=== PATIENT | female | born 1995 | race American Indian/Alaskan Native ===

== ENCOUNTER 2017-12-30 21:25 | Outpatient (CLI) | payer MEDICAID ==
[2017-12-30 21:47] VITALS: BP 116/68
[2017-12-30] MEDS ORDERED: TYLENOL PO ONE (22:55)
== END 2017-12-31 00:08 | disposition home or self-care (01) ==
LOC: TRG 21:25
PROVIDERS: ATTEND Obstetrics & Gynecology
DX: O47.02 False labor before 37 completed weeks of gestation, second trimester (principal); Z3A.23 23 weeks gestation of pregnancy
CPT/HCPCS: 59025

== ENCOUNTER 2018-04-25 14:48 | Outpatient (CLI) | payer MEDICAID ==
[2018-04-25 15:57] LABS: Hematocrit 38.9 % (30.3-42.9); Hemoglobin 13.1 gm/dl (10.1-14.3); Mean Corpuscular HGB Conc 34 % (30-34); Mean Corpuscular Hemoglobin 33 pg (28-32); Mean Corpuscular Volume 97 fl (79-97); Platelet Count 207 K/mm3 (140-440); Red Blood Count 4.01 M/mm3 (3.65-5.03); Red Cell Distribution Width 13.5 % (13.2-15.2)
[2018-04-25 15:59] LABS: Bacteria,Urine 1+ /HPF (Negative); Bilirubin,Urine NEG (Negative); Blood,Urine MOD (Negative); Color,Urine Yellow (Yellow); Mucus,Urine 2+ /HPF; Urobilinogen,Urine < 2.0 mg/dL (<2.0)
[2018-04-25 16:38] LABS: Alanine Aminotransferase 16 units/L (7-56); Uric Acid 4.5 mg/dL (3.5-7.6)
[2018-04-25 17:45] VITALS: BP 106/66
== END 2018-04-25 18:00 | disposition home or self-care (01) ==
LOC: TRG 14:48
PROVIDERS: ATTEND Obstetrics & Gynecology
DX: O47.1 False labor at or after 37 completed weeks of gestation (principal); Z3A.40 40 weeks gestation of pregnancy
CPT/HCPCS: 36415; 59025; 81001; 82565; 83615; 84450; 84460; 84550; 85027

== ENCOUNTER 2018-04-26 16:27 | Inpatient (IN) | payer MEDICAID ==
[2018-04-26] MEDS ORDERED: LACTATED RINGERS 1,000 ML IV ONE (17:24)
[2018-04-26] MEDS ORDERED: POLYCILLIN/NS 2 GM/100 ML 2 GM/100 ML BAG IV ONE (17:55)
[2018-04-26] MEDS ORDERED: MINERAL OIL PO PRN (17:55)
[2018-04-26] MEDS ORDERED: BRETHINE IVP PRN (17:55)
[2018-04-26] MEDS ORDERED: XYLOCAINE 2% INFILTRATI ONE (17:55)
[2018-04-26] MEDS ORDERED: SUBLIMAZE IV PRN (17:55)
[2018-04-26] MEDS ORDERED: STADOL IV PRN (18:00)
[2018-04-26] MEDS ORDERED: LACTATED RINGERS 1,000 ML IV SCH (18:00)
[2018-04-26] MEDS ORDERED: PITOCin/NS 20 UNIT/1000ML DRIP 20 UNITS/1,000 ML BAG IV SCH (18:00)
--- NOTE | 2018-04-26 18:07 | History and Physical Report ---
History of Present Illness Date of examination: 04/26/18 Chief complaint: labor contractions History of present illness: EDC Calculations LMP: 04/25/2018 Past History : 2 Term Births: 0 Premature Births: 0 Living Children: 0 Para: 0 Mult. Births: 0 Prev : 0 Prev. attempt? 0 Aborta: 1 Elect. Ab: 1 Spont. Ab: 0 Ectopics: 0 # 1 Delivery date: 2012 Weeks Gestation: 8 Delivery type: EAB Past Medical History: Negative Past Medical History Past Surgical History: EAB 2012 Past Medical History Surgery (Non-cycle consultant): EAB 2012 Abnormal PAP: negative LALO Exposure: negative Infertility: negative Uterine Anomaly: negative Uterine Surgery (not C/S): negative Other Gynecologic Problems: negative Infection History Hx of STD: none HIV Risk Eval: no Hepatitis B Risk Eval: low risk Rash, Viral, or Febrile illness since last LMP? no Varicella/Chicken Pox Status: Immunized Genetic History Congenital Heart Defect: Mom: no Dad: no Nahomi Disease: Mom: no Dad: no Thalassemia Mom: no Dad: no Neural Tube Defect Mom: no Dad: no Down's Syndrome Mom: no Dad: no Bandar-Sachs Mom: no Dad: no Sickle Cell Disease/Trait Mom: no Dad: no Hemophilia Mom: no Dad: no Muscular Dystrophy Mom: no Dad: no Cystic Fibrosis Mom: no Dad: no [place] Chorea Mom: no Dad: no Mental Retardation Mom: no Dad: no Fragile X Mom: no Dad: no Other Genetic/Chromosomal Disorder Mom: no Dad: no Child w/other defect Mom: no Dad: no Enviromental Exposures Xray Exposure: no Medication, drug, or alcohol use since LMP: no Chemical/Other Exposure: no Exposure to Cat Liter: no Hx of Parvovirus (Fifth Disease): no Occupational Exposure to Children: none 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 Medications (reviewed today): None Current Allergies (reviewed today): No known allergies Past History Past Medical History: other (see HPI) Past Surgical History: other (see HPI) 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: other (see HPI) - Obstetrical History Expected Date of Delivery: 04/25/18 Actual Gestation: 40 Week(s) 1 Day(s) : 2 Para: 0 Hx # Term Pregnancies: 0 Number of Pregnancies: 0 Spontaneous Abortions: 0 Induced : 1 Number of Living Children: 0 Medications and Allergies Allergies Allergy/AdvReac Type Severity Reaction Status Date / Time No Known Allergies Allergy Verified 04/25/18 14:52 Home Medications Medication Instructions Recorded Confirmed Last Taken Type No Known Home Medications [No 04/25/18 04/25/18 Unknown History Reported Home Medications] Active Meds: Active Medications Ephedrine Sulfate (Ephedrine Sulfate) 10 mg IV Q2M PRN PRN Reason: Hypotension Fentanyl (Sublimaze) 100 mcg IV Q2H PRN PRN Reason: Labor Pain Lactated Ringer's (Lactated Ringers) 1,000 mls @ 150 mls/hr IV DIRECT BARRY Lactated Ringer's (Lactated Ringers) 1,000 mls @ 999 mls/hr IV BOLUS ONE Stop: 04/26/18 18:24 Ampicillin Sodium (Polycillin/Ns 2 Gm/100 Ml) 2 gm in 100 mls @ 100 mls/hr IV ONCE ONE; Protocol Stop: 04/26/18 18:54 Ampicillin Sodium (Ampicillin/Ns 1 Gm/50 Ml) 1 gm in 50 mls @ 100 mls/hr IV Q4HR BARRY; Protocol Lactated Ringer's (Lactated Ringers) 1,000 mls @ 125 mls/hr IV DIRECT BARRY Oxytocin/Sodium Chloride (Pitocin/Ns 20 Unit/1000ml Drip) 20 units in 1,000 mls @ 125 mls/hr IV DIRECT BARRY Mineral Oil (Mineral Oil) 30 ml PO QHS PRN PRN Reason: Constipation Terbutaline Sulfate (Brethine) 0.25 mg IVP ONCE PRN PRN Reason: Hyperstimulation/Hypertonicity Review of Systems All systems: negative - Vital Signs Vital signs: Vital Signs Pulse BP 88 132/76 04/26/18 16:37 04/26/18 16:37 Temp Pulse Resp BP Pulse Ox 98.1 F 88 16 125/80 04/26/18 16:40 04/26/18 17:54 04/26/18 16:40 04/26/18 17:54 - Physical Exam Breasts: Positive: normal Cardiovascular: Regular rate Lungs: Positive: Clear to auscultation, Normal air movement Abdomen: Positive: normal appearance, soft Genitourinary (Female): Positive: normal external genitalia, normal perenium Vulva: both: normal Vagina: Positive: normal moisture Uterus: Positive: normal size, normal contour Anus/Rectum: Positive: normal perianal skin Extremities: Positive: normal Deep Tendon Reflex Grade: Normal +2 - Obstetrical FHR: category 1 Uterine Contraction Monitor Mode: External Cervical Dilatation: 4 Uterine Contraction Pattern: Regular Uterine Tone Measurement Phase: Contraction Uterine Contraction Intensity: Moderate Results Result Diagrams: 04/26/18 18:00 All other labs normal. Assessment and Plan Patient admitted for labor @ 40w1d, GBS +, SVE changed from 2cm to 3cm with BBOW in 1 hour, regular ctx. Plan for pain management, epidural PRN and abx q4h until delivery. Admission orders in EMR. - Patient Problems (1) 40 weeks gestation of Current Visit: Yes Status: Acute (2) GBS (group B Streptococcus carrier), +RV culture, currently Current Visit: Yes Status: Acute (3) Active labor at term Current Visit: Yes Status: Acute
[2018-04-26 18:24] LABS: Hematocrit 38.2 % (30.3-42.9); Hemoglobin 13.1 gm/dl (10.1-14.3); Mean Corpuscular HGB Conc 34 % (30-34); Mean Corpuscular Hemoglobin 33 pg (28-32); Mean Corpuscular Volume 96 fl (79-97); Platelet Count 215 K/mm3 (140-440); Red Blood Count 3.96 M/mm3 (3.65-5.03); Red Cell Distribution Width 13.6 % (13.2-15.2)
[2018-04-26] MEDS ORDERED: STADOL ONE (18:43)
[2018-04-26] MEDS: LACTATED RINGERS 1,000 ML IV SCH ×2 (19:37→22:24)
[2018-04-26] MEDS ORDERED: NARCAN 2 MG/2 ML IV PRN (20:19)
--- NOTE | 2018-04-26 20:54 | Progress Note ---
Assessment and Plan Patient comfortable s/p epidural - AROM forebag. anticipate . Dr. Lopez aware. - Patient Problems (1) 40 weeks gestation of Current Visit: Yes Status: Acute (2) GBS (group B Streptococcus carrier), +RV culture, currently Current Visit: Yes Status: Acute (3) Active labor at term Current Visit: Yes Status: Acute Subjective - Subjective Date of service: 04/26/18 Principal diagnosis: IUP @ 40+1, LABOR Interval history: EDC Calculations LMP: 04/25/2018 Past History : 2 Term Births: 0 Premature Births: 0 Living Children: 0 Para: 0 Mult. Births: 0 Prev : 0 Prev. attempt? 0 Aborta: 1 Elect. Ab: 1 Spont. 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 no Varicella/Chicken Pox Status: Immunized Genetic History Congenital Heart Defect: Mom: no Dad: no Nahomi Disease: Mom: no Dad: no Thalassemia Mom: no Dad: no Neural Tube Defect Mom: no Dad: no Down's Syndrome Mom: no Dad: no Bandar-Sachs Mom: no Dad: no Sickle Cell Disease/Trait Mom: no Dad: no Hemophilia Mom: no Dad: no Muscular Dystrophy Mom: no Dad: no Cystic Fibrosis Mom: no Dad: no [place] Chorea Mom: no Dad: no Mental Retardation Mom: no Dad: no Fragile X Mom: no Dad: no Other Genetic/Chromosomal Disorder Mom: no Dad: no Child w/other defect Mom: no Dad: no Enviromental Exposures Xray Exposure: no Medication, drug, or alcohol use since LMP: no Chemical/Other Exposure: no Exposure to Cat Liter: no Hx of Parvovirus (Fifth Disease): no Occupational Exposure to Children: none 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 Medications (reviewed today): None Current Allergies (reviewed today): No known allergies Patient reports: no new complaints (comfortable s/p epidural) Objective - Vital Signs Vital Signs: Vital Signs - 12hr 04/26/18 04/26/18 04/26/18 16:37 16:40 16:54 Temperature 98.1 F Pulse Rate 88 79 Respiratory 16 Rate Blood Pressure 132/76 118/66 Blood Pressure [Right] O2 Sat by Pulse Oximetry 04/26/18 04/26/18 04/26/18 17:07 17:23 17:39 Temperature Pulse Rate 85 81 75 Respiratory Rate Blood Pressure 126/72 135/74 128/86 Blood Pressure [Right] O2 Sat by Pulse Oximetry 04/26/18 04/26/18 04/26/18 17:54 18:08 18:22 Temperature Pulse Rate 88 93 H 86 Respiratory Rate Blood Pressure 125/80 133/80 141/90 Blood Pressure [Right] O2 Sat by Pulse Oximetry 04/26/18 04/26/18 04/26/18 18:41 19:49 19:51 Temperature Pulse Rate 88 88 90 Respiratory 16 Rate Blood Pressure 132/68 142/84 Blood Pressure 132/68 [Right] O2 Sat by Pulse Oximetry 04/26/18 04/26/18 04/26/18 20:36 20:38 20:39 Temperature Pulse Rate 81 83 99 H Respiratory Rate Blood Pressure 122/66 110/61 Blood Pressure [Right] O2 Sat by Pulse 97 Oximetry 04/26/18 04/26/18 04/26/18 20:41 20:42 20:44 Temperature Pulse Rate 90 83 89 Respiratory Rate Blood Pressure 127/82 124/76 Blood Pressure [Right] O2 Sat by Pulse 97 Oximetry 04/26/18 04/26/18 04/26/18 20:45 20:46 20:48 Temperature Pulse Rate 90 81 76 Respiratory Rate Blood Pressure 160/84 129/68 122/61 Blood Pressure [Right] O2 Sat by Pulse Oximetry 04/26/18 04/26/18 20:49 20:50 Temperature Pulse Rate 77 73 Respiratory Rate Blood Pressure 125/65 Blood Pressure [Right] O2 Sat by Pulse 97 Oximetry - Exam Breasts: normal Cardiovascular: Regular rate Lungs: Clear to auscultation, Normal air movement Abdomen: Present: normal appearance, soft Vulva: both: normal Uterus: Present: normal FHR: auscultation normal, category 1 Uterine Contraction Monitor Mode: External Cervical Dilatation: 6.5 (forebag AROM'd) Cervical Effacement Percentage: 100 station: 0 Uterine Contraction Frequency (min): 3-5 Uterine Contraction Duration: 60 Uterine Contraction Pattern: Regular Uterine Tone Measurement Phase: Contraction Uterine Contraction Intensity: Moderate Extremities: normal Deep Tendon Reflex Grade: Normal +2 - Labs Labs: Abnormal Labs 04/26/18 18:00 MCH 33 H Laboratory Results - last 24 hr 04/26/18 04/26/18 18:00 18:00 WBC 8.9 RBC 3.96 Hgb 13.1 Hct 38.2 MCV 96 MCH 33 H MCHC 34 RDW 13.6 Plt Count 215 Blood Type B NEGATIVE Antibody Screen Negative
[2018-04-26] MEDS ORDERED: fentaNYL-BUPIV 2 MCG/ML-0.125% 200 MCG/100 ML BAG EPIDURAL SCH (21:00)
[2018-04-26] MEDS ORDERED: PITOCin/NS 30 UNIT/500ML 30 UNITS/500 ML BAG IV SCH (21:00)
--- NOTE | 2018-04-26 21:29 | Anesthesia Consultation ---
Anesthesia Consult and Med Hx Date of service: 04/26/18 - Airway Anesthetic Teeth Evaluation: Good ROM Head & Neck: Adequate Mental/Hyoid Distance: Adequate Mallampati Class: Class II Intubation Access Assessment: Probably Good - Pulmonary Exam CTA: Yes - Cardiac Exam Cardiac Exam: RRR - Pre-Operative Health Status ASA Pre-Surgery Classification: ASA1 Proposed Anesthetic Plan: Epidural, Spinal - Pulmonary Hx Smoking: No Hx Asthma: No SOB: No - Cardiovascular System Hx Hypertension: No Hx Heart Attack/AMI: No - Central Nervous System Hx Neuromuscular Disorder: No Hx Seizures: No CVA: No - Endocrine Hx Renal Disease: No Hx Liver Disease: No Hx Thyroid Disease: No - Hematic Hx Anemia: No
[2018-04-26] MEDS ORDERED: AMPICILLIN/NS 1 GM/50 ML 1 GM/50 ML BAG IV SCH (21:57)
--- NOTE | 2018-04-27 01:32 | Procedure Note ---
OB Delivery Note - Delivery Date of Delivery: 04/27/18 ( female) Band Straightener: MATTHEW SHAH Estimated blood loss: 200cc - Vaginal Delivery presentation: vertex Delivery position: OA Intrapartum events: none Delivery induction: none Delivery augmentation: pitocin Delivery monitor: external FHT, external uterine Route of delivery: Delivery placenta: spontaneous Delivery cord: 3 umbilical vessels Episiotomy: none Delivery laceration: none Anesthesia: epidural Delivery comments: female delivered over intact perineum, placed skin to skin on mother's abdomen. 3 vessel cord clamped and cut. Placenta del intact and complete. no lacerations to repair. Pit to IVF. EBL 200, apgars 8/9, wt 6#10oz. mother and LDR stable. - Infant A at 1 minute: 8 at 5 minutes: 9 Infant Gender: Female (6#10)
[2018-04-27] MEDS ORDERED: ZOFRAN ONE (03:25)
[2018-04-27] MEDS ORDERED: LANSINOH TP PRN (04:08)
[2018-04-27] MEDS ORDERED: SODIUM CHLORIDE FLUSH SYRINGE 10 ML IV PRN (04:08)
[2018-04-27] MEDS ORDERED: TUCKS PAD TP PRN (04:08)
[2018-04-27] MEDS ORDERED: TYLENOL PO PRN (04:08)
[2018-04-27] MEDS ORDERED: ZOFRAN IV PRN (04:08)
[2018-04-27] MEDS ORDERED: DULCOLAX PR PRN (04:08)
[2018-04-27] MEDS ORDERED: BENADRYL PO PRN (04:08)
[2018-04-27] MEDS ORDERED: PHENERGAN PO PRN (04:08)
[2018-04-27] MEDS ORDERED: MILK OF MAGNESIA PO PRN (04:08)
[2018-04-27] MEDS ORDERED: PITOCin/NS 20 UNIT/1000ML DRIP 20 UNITS/1,000 ML BAG IV SCH (04:08)
[2018-04-27] MEDS: MOTRIN PO SCH ×4 (05:43→23:20)
[2018-04-27] MEDS ORDERED: PRENATAL VITAMIN PO SCH (10:00)
[2018-04-27 12:59] LABS: Hematocrit 34.9 % (30.3-42.9)
[2018-04-28] MEDS: MOTRIN PO SCH (05:14)
--- NOTE | 2018-04-28 05:59 | Discharge Summary ---
Providers - Providers Date of Admission: 04/26/18 18:41 Date of discharge: 04/28/18 (pt agrees with d/c) Attending physician: ROMEO MONTERO 04/27/18 04:08 Consult to Obgyn Hospitalist Physician [CONS] Routine Reason For Exam: assistance with , SNS Primary care physician: NISHANT STREET Hospitalization Reason for admission: active labor Delivery: Episiotomy: none Laceration: none Incision: normal, dry Other procedures: none complications: none Discharge diagnosis: IUP at term delivered baby: female Hospital course: uncomplicated vaginal delivery Pt resting Feeding NB VSS FF below umb Lochia small perineum intact H&H stable Doing well s/p vag delivery P: d/c today with instructions RTO 4 weeks PP care Condition at discharge: Good Disposition: DC-01 TO HOME OR SELFCARE - Discharge Diagnoses (1) (normal spontaneous vaginal delivery) Status: Acute Comment: RTO 4 weeks PP care Plan - Provider Discharge Summary Activity: routine, no sex for 6 weeks, no heavy lifting 4 weeks, no strenuous exercise Diet: routine Instructions: routine Additional instructions: [] Smoking cessation referral if applicable(refer to patient education folder for contact #) [] Refer to [facility] Booklet Call your doctor immediately for: * Fever > 100.5 * Heavy vaginal bleeding ( >1 pad per hour) * Severe persistent headache * Shortness of breath * Reddened, hot, painful area to leg or breast * Drainage or odor from incision. * Keep incision clean and dry at all times and follow doctor's instructions regarding bathing/showering - Follow up plan Follow up: NISHANT STREET MD [Primary Care Provider] - 05/27/18 (Congratulations! Please call [facility] office [phone] to schedule your visit in 4 weeks. Motrin/Ibuprofen for any cramping you may experience. Call with concerns.)
[2018-04-28] MEDS ORDERED: BOOSTRIX IM ONE (06:00)
[2018-04-28 12:45] VITALS: BP 118/76
== END 2018-04-28 12:35 | disposition home or self-care (01) | DRG 775 ==
LOC: TRG 16:27 → LD 18:41 → OB 04-27 03:59
PROVIDERS: ADMIT Obstetrics & Gynecology; ATTEND Obstetrics & Gynecology
PROC: 10E0XZZ Delivery of Products of Conception, External Approach (ICD-10-PCS; principal; 2018-04-27)
PROC: 3E0R3BZ Introduction of Anesthetic Agent into Spinal Canal, Percutaneous Approach (ICD-10-PCS; 2018-04-27)
PROC: 00HU33Z Insertion of Infusion Device into Spinal Canal, Percutaneous Approach (ICD-10-PCS; 2018-04-27)
PROC: 3E0234Z Introduction of Serum, Toxoid and Vaccine into Muscle, Percutaneous Approach (ICD-10-PCS; 2018-04-28)
DX: O99.824 Streptococcus B carrier state complicating childbirth (principal); Z3A.40 40 weeks gestation of pregnancy; Z37.0 Single live birth; Z29.13 Encounter for prophylactic Rho(D) immune globulin
CPT/HCPCS: 36415; 85014; 85018; 85027; 85461; 86592; 86850; 86900; 86901; 90471; 90715; J0290; J0595; J2405; J2590; J2790; J7120

== ENCOUNTER 2020-05-03 18:17 | Emergency (ER) | payer MEDICAID, OTHER ==
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
[2020-05-03 22:30] VITALS: BP 116/73
== END 2020-05-03 21:59 | disposition home or self-care (01) ==
LOC: ED 18:17
DX: S50.11XA Contusion of right forearm, initial encounter (principal); Z79.899 Other long term (current) drug therapy; Z88.8 Allergy status to other drugs, medicaments and biological substances; V49.59XA Passenger injured in collision with other motor vehicles in traffic accident, initial encounter; Y92.410 Unspecified street and highway as the place of occurrence of the external cause; Y93.89 Activity, other specified; Y99.8 Other external cause status